=== PATIENT | female | born 2000 | race Two or more races ===

== ENCOUNTER 2022-01-10 12:21 | Emergency (ER) | payer MEDICAID ==
[~2022-01-10] VITALS: Ht 162.6 cm; Wt 79.0 kg
[2022-01-10] MEDS ORDERED: AMOX-277 PO (12:49)
[2022-01-10] MEDS ORDERED: PRED20TA2 PO (12:49)
[2022-01-10] MEDS ORDERED: cefTRIAXone SOD 1,000 MG VL IM ONE (13:00)
[2022-01-10] MEDS ORDERED: methylPREDNISolone SOD SUCC 125 MG/2 ML VL IM ONE (13:00)
[2022-01-10 13:14] VITALS: BP 138/88
== END 2022-01-10 13:41 | disposition home or self-care (01) ==
LOC: ER 12:21
DX: H66.92 Otitis media, unspecified, left ear (principal); J02.9 Acute pharyngitis, unspecified; Z79.2 Long term (current) use of antibiotics; Z79.899 Other long term (current) drug therapy; Z20.822 Contact with and (suspected) exposure to COVID-19
CPT/HCPCS: 36415; 87426; 96372; 99284; J0696; J2930

== ENCOUNTER 2023-02-21 07:55 | Emergency (ER) | payer MEDICAID ==
[~2023-02-21] VITALS: Ht 160 cm; Wt 86.7 kg
[~2023-02-21 07:55] MED LIST: AMOX875T4 PO; PRED20TA2 PO
[2023-02-21 08:24] VITALS: BP 122/83; PULSE 88; RESP 16; TEMP 97.8; O2SAT 98
[2023-02-21] MEDS ORDERED: cefTRIAXone SOD 1,000 MG VL IM ONE (08:45)
[2023-02-21] MEDS ORDERED: CLIN300C70 PO (08:53)
[2023-02-21] MEDS ORDERED: NAPR-746 PO (08:53)
[2023-02-21] MEDS ORDERED: CEPH500C PO (08:53)
== END 2023-02-21 08:57 | disposition home or self-care (01) ==
LOC: ER 07:55
DX: H66.92 Otitis media, unspecified, left ear (principal); K04.7 Periapical abscess without sinus; I88.9 Nonspecific lymphadenitis, unspecified; Z79.899 Other long term (current) drug therapy
CPT/HCPCS: 96372; 99283; J0696

== ENCOUNTER 2023-12-01 10:18 | Emergency (ER) | payer SELFPAY ==
[~2023-12-01] VITALS: Ht 162.6 cm; Wt 89.3 kg
[~2023-12-01 10:18] MED LIST changes: +CEPH500C PO; +CLIN1CAP70 PO; +NAPR-746 PO
[2023-12-01 10:38] VITALS: BP 127/62; PULSE 110; RESP 16; TEMP 97.4; O2SAT 95
[2023-12-01] MEDS ORDERED: IBUP-1456 PO (10:43)
[2023-12-01] MEDS ORDERED: AMOX875T3 PO (10:43)
[2023-12-01] MEDS: cefTRIAXone SOD 1,000 MG VL IM ONE (10:49)
== END 2023-12-01 11:06 | disposition home or self-care (01) ==
LOC: ER 10:18
DX: J03.90 Acute tonsillitis, unspecified (principal); H66.92 Otitis media, unspecified, left ear; Z79.899 Other long term (current) drug therapy; Z79.1 Long term (current) use of non-steroidal anti-inflammatories (NSAID); Z79.2 Long term (current) use of antibiotics
CPT/HCPCS: 96372; 99283; J0696